=== PATIENT | female | born 1960 | race Caucasian/White ===

== ENCOUNTER → 2017-07-27 | Outpatient (CLI) | payer OTHER, SELFPAY ==
[~2017-07-27] MED LIST: ALBU90OI INH; ASCO500; ASPI81CH PO; B-121000 MC1; CYCL10 PO; Calcium 600 +1 EAC1; ESTR1 PO; FLONASE ALLERG9.9 ML; GABA300 PO; GINKGO BILOBA30 MG; HYDACE5 PO; IBUP800 PO; KRILL OIL500 MG; LORA1 PO; METF500 PO; Milk Thistle175 MG; OXYACE5T PO; Omeprazole20 M1 PO; Pepcid20 MG PO; Robaxin-750750 MG PO; Roxicodone5 MG PO; Super B Comple150 MG; VITAMIN E200 UNI2; Vitamin D2000 UNIT
== END | disposition home or self-care (01) ==
LOC: LAB SHORT 21:55 → OLS 21:55 → LAB FUT 07-24 10:20
DX: K29.60 Other gastritis without bleeding (principal)
CPT/HCPCS: 87338

== ENCOUNTER → 2017-09-12 | Outpatient (CLI) | payer OTHER, SELFPAY | LOC: LAB SHORT 06:20 → OLS 06:20 → EDSTATUS 09-11 15:40 → LAB FUT 09-11 15:40 | DX: K29.60 Other gastritis without bleeding (principal) | CPT/HCPCS: 87338 ==

== ENCOUNTER 2017-10-11 18:47 | Emergency (ER) | payer OTHER, SELFPAY ==
[~2017-10-11] VITALS: Ht 160 cm; Wt 77.1 kg
[~2017-10-11 18:47] MED LIST changes: -Robaxin-750750 MG PO; -Roxicodone5 MG PO
[2017-10-11] MEDS ORDERED: Roxicodone5 MG PO (22:09)
[2017-10-11] MEDS ORDERED: Robaxin-750750 MG PO (22:09)
== END 2017-10-11 22:25 | disposition home or self-care (01) ==
LOC: ER 18:47
DX: M54.5 Low back pain (principal); Z88.0 Allergy status to penicillin; Z79.899 Other long term (current) drug therapy; J44.9 Chronic obstructive pulmonary disease, unspecified; E66.9 Obesity, unspecified; E11.9 Type 2 diabetes mellitus without complications; Z87.891 Personal history of nicotine dependence
CPT/HCPCS: 96374; 96375; 96376; 99284; J1100; J1885; J2405; J3010

== ENCOUNTER → 2018-08-02 | Outpatient (CLI) | payer OTHER ==
[~2018-08-02] MED LIST changes: +Robaxin-750750 MG PO; +Roxicodone5 MG PO
[2018-08-02 11:15] LABS: Source, Urine Clean Catch
[2018-08-02 12:50] LABS: Bilirubin, Urine Neg (Neg); Blood, Urine Neg (Neg); Glucose Qualitative, Urine Neg (Neg); Ketones, Urine Neg (Neg); Leukocyte Esterase, Urine Neg (Neg); Nitrite, Urine Neg (Neg); Protein, Urine Neg (Neg); Urobilinogen, Urine NORM (Normal)
[2018-08-02 13:16] LABS: Appearance, Urine Clear (Clear); Color, Urine Yellow (P-Yellow)
== END | disposition home or self-care (01) ==
LOC: LAB SHORT 11:14 → LAB 11:14
PROVIDERS: Family Medicine
DX: R39.14 Feeling of incomplete bladder emptying (principal)
CPT/HCPCS: 81003

== ENCOUNTER → 2019-03-22 | Outpatient (CLI) | payer OTHER | END | disposition home or self-care (01) | LOC: LAB SHORT 17:51 → LAB 17:51 | DX: R30.0 Dysuria (principal) | CPT/HCPCS: 87077; 87086; 87186 ==

== ENCOUNTER → 2019-07-25 | Outpatient (CLI) | payer OTHER | LOC: LAB 13:01 → LAB SHORT 13:01 | DX: R30.0 Dysuria (principal); R35.0 Frequency of micturition | CPT/HCPCS: 87077; 87086; 87186 ==

== ENCOUNTER → 2020-04-16 | Outpatient (CLI) | payer OTHER ==
[2020-04-16 16:55] LABS: Source, Urine Clean Catch
[2020-04-16 18:07] LABS: Bilirubin, Urine Neg (Neg); Blood, Urine Neg (Neg); Glucose Qualitative, Urine Neg (Neg); Ketones, Urine Neg (Neg); Leukocyte Esterase, Urine Neg (Neg); Nitrite, Urine Neg (Neg); Protein, Urine Neg (Neg); Specific Gravity, Urine 1.005 (1.003-1.022); Urobilinogen, Urine NORM (Normal)
[2020-04-16 19:29] LABS: Appearance, Urine Clear (Clear); Color, Urine Yellow (P-Yellow)
== END ==
LOC: LAB SHORT 16:53 → LAB 16:53
PROVIDERS: Nurse Practitioner Family
DX: R30.0 Dysuria (principal)
CPT/HCPCS: 81003

== ENCOUNTER 2020-08-14 09:47 | Day surgery (SDC) | payer OTHER ==
[~2020-08-14] VITALS: Ht 160 cm; Wt 83.6 kg
[~2020-08-14 09:47] MED LIST changes: +AMIT50 PO; +OMEP20ER PO; +Prinivil10 MG PO; +Vitamin D2000 UNIT PO
== END 2020-08-14 11:32 | disposition home or self-care (01) ==
LOC: ORSCSDS 09:47
PROVIDERS: Internal Medicine Gastroenterology
PROC: 0D5P8ZZ Destruction of Rectum, Via Natural or Artificial Opening Endoscopic (ICD-10-PCS; principal; 2020-08-14 11:00)
PROC: 0DBP8ZX Excision of Rectum, Via Natural or Artificial Opening Endoscopic, Diagnostic (ICD-10-PCS; principal; 2020-08-14 11:00)
PROC: 0DBH8ZX Excision of Cecum, Via Natural or Artificial Opening Endoscopic, Diagnostic (ICD-10-PCS; principal; 2020-08-14 11:00)
DX: Z12.11 Encounter for screening for malignant neoplasm of colon (principal); Z86.010 Personal history of colon polyps; D12.8 Benign neoplasm of rectum; K62.1 Rectal polyp; K55.20 Angiodysplasia of colon without hemorrhage; K57.30 Diverticulosis of large intestine without perforation or abscess without bleeding; K64.8 Other hemorrhoids; E11.9 Type 2 diabetes mellitus without complications; J45.909 Unspecified asthma, uncomplicated; I10 Essential (primary) hypertension; N18.30 Chronic kidney disease, stage 3 unspecified; E78.5 Hyperlipidemia, unspecified; B19.20 Unspecified viral hepatitis C without hepatic coma; Z79.84 Long term (current) use of oral hypoglycemic drugs; Z79.899 Other long term (current) drug therapy
CPT/HCPCS: 82947; 88305; J2704; J7120

== ENCOUNTER → 2021-03-23 | Outpatient (CLI) | payer OTHER | END | disposition home or self-care (01) | LOC: LAB SHORT 17:54 → LAB 17:54 | DX: M54.5 Low back pain (principal) | CPT/HCPCS: 87077; 87086; 87186 ==

== ENCOUNTER → 2022-05-27 | Outpatient (CLI) | payer OTHER | END | disposition home or self-care (01) | LOC: LAB 10:10 → LAB SHORT 10:10 | DX: N23 Unspecified renal colic (principal) | CPT/HCPCS: 87077; 87086; 87186 ==

== ENCOUNTER → 2023-12-27 | Outpatient (CLI) | payer OTHER | LOC: LAB 15:10 → LAB SHORT 15:10 | DX: R82.90 Unspecified abnormal findings in urine (principal) | CPT/HCPCS: 87077; 87086; 87186 ==

== ENCOUNTER → 2025-04-23 | Outpatient (CLI) | payer OTHER ==
[~2025-04-23] MED LIST changes: +FARXIGA5 MG PO; +PIOGLITAZONE HC15 MG PO; +TRULICITY0.75 MG/01 SQ
[2025-04-23 18:14] LABS: BASOPHILS ABSOLUTE AUTO 0.04 K/mm3 (0.00-0.23); BASOPHILS PERCENT AUTO 1 % (0-2); EOSINOPHILS ABSOLUTE AUTO 0.15 K/mm3 (0.00-0.68); EOSINOPHILS PERCENT AUTO 3 % (0-6); Hematocrit 44.9 % (33.0-51.0); Hemoglobin 14.6 g/dL (11.5-16.0); IMMATURE GRAN ABSOLUTE AUTO 0.01 K/mm3 (0.00-0.10); IMMATURE GRAN PERCENT AUTO 0 % (0-1); LYMPHOCYTES ABSOLUTE AUTO 1.35 K/mm3 (0.84-5.20); LYMPHOCYTES PERCENT AUTO 28 % (21-46); MONOCYTES ABSOLUTE AUTO 0.36 K/mm3 (0.16-1.47); MONOCYTES PERCENT AUTO 7 % (4-13); Mean Corpuscular HGB Conc 32.5 g/dL (31.5-36.5); Mean Corpuscular Volume 87 fL (80-100); NEUTROPHILS ABSOLUTE AUTO 3.00 K/mm3 (1.96-9.15); NEUTROPHILS PERCENT AUTO 61 % (41-73); NRBC ABSOLUTE 0.00 K/mm3 (0.00-0.02); NRBC Auto 0.0 /100 WBC (0.0-0.2); Platelet Count 133 K/mm3 (150-400); RDW Coefficient Variation 16.7 % (11.7-14.2); RDW Standard Deviation 52.4 fL (35.1-46.3)
[2025-04-23 19:51] LABS: Alanine Aminotransfer (ALT/SGP 43.0 U/L (12-78); Albumin, Blood 3.7 g/dL (3.4-5.0); Albumin/Globulin Ratio 0.8 (0.8-1.8); Anion Gap 10.0 mmol/L (3-11); Aspartate Aminotrans (AST/SGOT 60.0 U/L (12-37); Bilirubin, Total 0.4 mg/dL (0.1-1.0); Blood Urea Nitrogen 12.0 mg/dL (8-24); CO2, Blood 26.0 mmol/L (21-32); Calcium, Blood 9.6 mg/dL (8.5-10.1); Chloride, Blood 104.0 mmol/L (98-108); Creatinine, Blood 0.85 mg/dL (0.40-1.00); Ferritin, Serum 60.0 ng/mL (8-252); Globulin, Blood 4.9 g/dL (2.2-4.0); Glucose, Blood 176.0 mg/dL (70-99); Potassium, Blood 4.0 mmol/L (3.5-5.5); Sodium, Blood 136.0 mmol/L (136-145); Thyroid Stimulating Hormone 2.6 uIU/mL (0.360-4.800); Total Iron Binding Capacity 359.0 ug/dL (250-450); Total Protein, Blood 8.6 g/dL (6.4-8.2)
== END ==
LOC: LAB SHORT 16:18 → LAB 16:18
PROVIDERS: Student in an Organized Health Care Education/Training Program
DX: E11.41 Type 2 diabetes mellitus with diabetic mononeuropathy (principal); D64.9 Anemia, unspecified; G43.909 Migraine, unspecified, not intractable, without status migrainosus; R42 Dizziness and giddiness
CPT/HCPCS: 80053; 82728; 83540; 83550; 84443; 85025

== ENCOUNTER → 2025-06-26 | Outpatient (CLI) | payer OTHER ==
[2025-07-03 01:49] LABS: ALBUMIN %,URINE 100.0 %; ALPHA-1 %,URINE 0.0 %; ALPHA-2 %,URINE 0.0 %; BETA GLOBULIN %,URINE 0.0 %; GAMMA GLOBULIN %,URINE 0.0 %; HOURS COLLECTED 24 hr; PARAPROTEIN %,URINE 0.0 %; PARAPROTEIN EXCRETION/24 HOUR 0.0
== END ==
LOC: LAB 16:07 → LAB SHORT 16:07
PROVIDERS: Nurse Practitioner
DX: R76.9 Abnormal immunological finding in serum, unspecified (principal)
CPT/HCPCS: 81050; 84156; 84166; 86335